=== PATIENT | female | born 1945 | race Caucasian/White ===

== ENCOUNTER → 2017-07-31 | Emergency (ER) | payer OTHER ==
[~2017-07-31] VITALS: Ht 167.6 cm; Wt 113.4 kg
[~2017-07-31] MED LIST: AMLODIPINE BESYL5 MG PO; OSTERA TABLET1 EACH PO; RISPERDAL0.5 MG PO
== END | disposition home or self-care (01) ==
LOC: ER 09:51
DX: R55 Syncope and collapse (principal); R10.84 Generalized abdominal pain